=== PATIENT | male | born 1935 | race Caucasian/White ===

== ENCOUNTER 2017-03-06 10:54 | Inpatient (IN) ==
--- NOTE | 2017-03-06 11:28 | PROVIDER DOCUMENTATION ---
HPI-Neurological Disorder - General Chief Complaint: Stroke-Like Symptoms Stated Complaint: STROKE LIKE SX Time Seen by Provider: 03/06/17 11:13 Source: patient, family Unable to obtain history due to:: urgency Allergies/Adverse Reactions: Patient Allergies Allergy/AdvReac Type Severity Reaction Status Date / Time No Known Allergies Allergy Verified 10/27/16 08:34 Home Medications: Home Medication List Medication Instructions Recorded Confirmed Last Taken Type Allopurinol 100 mg PO DAILY 10/27/16 11/01/16 11/01/16 05:00 History Amlodipine Besylate/Benazepril 1 each PO DAILY 10/27/16 11/01/16 10/31/16 09:00 History [Amlodipine-Benazepril 10-40 mg] Clopidogrel Bisulfate [Plavix] 75 mg PO DAILY 10/27/16 11/01/16 10/25/16 09:00 History Famotidine 20 mg PO BID 10/27/16 11/01/16 10/31/16 21:00 History Fish Oil/Dha/Epa [Fish Oil 1,200 1 each PO DAILY 10/27/16 11/01/16 10/31/16 09: 00 History mg Fish Oil] Fluorometholone 0.1% Oph [Fml 0.1% 1 drop DAILY 10/27/16 11/01/16 10/31/16 21: 00 History Oph Suspension] Gluc/Abelardo-MSM#1/Vit C/[place]/Bor 1 each PO BID 10/27/16 11/01/16 10/31/16 21:00 History [Jbpjzhn-Hasdt-MEB Complex Cplt] Metoprolol Succinate [Toprol Xl] 200 mg PO DAILY 10/27/16 11/01/16 11/01/16 05: 00 History Multivit-Min/FA/Lycopen/Lutein 1 each PO DAILY 10/27/16 11/01/16 10/31/16 09:00 History [Centrum Silver Tablet] Pravastatin Sodium 40 mg PO DAILY 10/27/16 11/01/16 10/31/16 09:00 History Tamsulosin [Flomax] 0.4 mg PO DAILY 10/27/16 11/01/16 10/31/16 09:00 History Vit A/C/E AC/Znox/Cupric Oxide 1 each PO DAILY 10/27/16 11/01/16 10/31/16 09:00 History [Eye Vitamin-Minerals Tablet] Acetaminophen [Tylenol] 1,000 mg PO Q6H #0 tablet 11/04/16 Unknown Rx Celecoxib [Celebrex] 200 mg PO BID #0 capsule 11/04/16 Unknown Rx Docusate Sodium [Colace] 100 mg PO BID #0 capsule 11/04/16 Unknown Rx Magnesium Hydroxide [Milk of 30 ml PO Q6H PRN PRN #0 udc 11/04/16 Unknown Rx Magnesia] Oxycodone I.r. [Oxy Ir] 5 - 10 mg PO Q3H PRN PRN #60 11/04/16 Unknown Rx capsule Pregabalin [Lyrica] 75 mg PO BID #60 capsule 11/04/16 Unknown Rx Tramadol [Ultram] 100 mg PO Q6H #120 tablet 11/04/16 Unknown Rx - History of Present Illness-Neuro Nature of Presenting Problem: Presents with slurred speech. Son talked to him yest, was NL. No one talked to him again until today, when pt and son noticed his speech difficulty. He c/o pain to R knee, denies numbness or weakness. no fever, no headache Severity: reports: mild Onset/Duration: reports: unsure Timing: reports: still present Context: reports: other (see HPI) Character of Altered Mental Status: reports: other (speech slurred) Any recent trauma/injury?: reports: none Character of Deficits: reports: impaired speech New weakness or altered sensation location:: reports: none Cognitive Baseline: alert, oriented x3 Gait Baseline: walks without assistance Associated Symptoms: reports: slurred speech. denies: headache, chest pain, fever/chills, nausea, vomiting, vision changes Similar Symptoms Previously?: No Recently seen or treated by another doctor?: No Review of Systems - Adult - REVIEW OF SYSTEMS - ADULT Constitutional: reports: no symptoms reported Eyes: reports: no symptoms reported Ears, Nose, Mouth & Throat: reports: no symptoms reported Cardiovascular: reports: no symptoms reported Respiratory: reports: no symptoms reported Gastrointestinal: reports: no symptoms reported Genitourinary: reports: no symptoms reported Musculoskeletal: reports: see HPI Integumentary: reports: no symptoms reported Neurological: reports: see HPI Psychiatric: reports: no symptoms reported Endocrine: reports: no symptoms reported Hematologic/Lymphatic: reports: no symptoms reported Allergic/Immunologic: reports: no symptoms reported Past History - Adult - PAST MEDICAL HISTORY-ADULT Review of Records: reports: Medications Reviewed - SOCIAL HISTORY Smoking: denies Physical Exam- Neurological - Physical Exam-Neuro Initial Vital Signs Reviewed: Yes General Appearance: appears well, alert, no apparent distress Eye Exam: bilateral eye: normal inspection, PERRL, EOMI HENMT: normocephalic/atraumatic, moist mucous membranes, normal ENT inspection, pharynx normal Head Injury: no evidence of injury. negative: active bleeding Neck: full range of motion, supple, normal inspection, other (no carotid Bruit) Respiratory: lungs clear, normal breath sounds, no pleuratic chest pain, no respiratory distress, no accessory muscle use Cardiovascular: regular rate, rhythm, no edema, no gallop, no murmur Abdominal Exam: non tender, soft Extremity: normal range of motion, non-tender, normal inspection chemical maker Exam: normal hearing, PERRL, other (speech sl slurred. CN exam shows sl weakness of R CN VII, otherwise are intact) Motor/Sensory: no sensory deficit, other (sl RUE pronator drift, sl weakness on extension of R LE) Neurologic: other (see above) Integumentary: normal color, normal turgor, warm/dry, abrasion(s) Progress - PLAN OF CARE/RESULTS Progress/Plan/Lab Results: Vital Signs - 8 hr 03/06/17 11:03 Temperature 97.4 F L Pulse Rate 50 L Respiratory Rate 20 Blood Pressure 175/93 O2 Sat by Pulse Oximetry 100 Laboratory Results - last 24 hr 03/06/17 03/06/17 03/06/17 11:35 11:35 11:35 WBC 5.82 RBC 3.95 L Hgb 12.9 L Hct 38.1 L MCV 96.5 MCH 32.7 H MCHC 33.9 RDW Std Deviation 13.7 Plt Count 158 MPV 10.3 Immature Gran % (Auto) 0.0 Neut % (Auto) 61.4 Lymph % (Auto) 25.3 [place] % (Auto) 11.5 H Eos % (Auto) 1.5 Baso % (Auto) 0.3 Immature Gran # (Auto) 0.00 Neut # (Auto) 3.57 Lymph # (Auto) 1.47 [place] # (Auto) 0.67 H Eos # (Auto) 0.09 Baso # (Auto) 0.02 PT 10.7 INR 1.02 PTT (Actin FS) 25.3 Sodium 142 Potassium 4.2 Chloride 105 Carbon Dioxide 25 Anion Gap 12 BUN 16 Creatinine 1.0 Estimated GFR/1.73 m2 > 60 BUN/Creatinine Ratio 16 Glucose 110 H Calculated Osmolality 285 Calcium 8.9 Total Bilirubin 0.49 AST 18 ALT 12 Alkaline Phosphatase 72 Troponin T Total Protein 6.7 Albumin 4.2 Globulin 2.5 Albumin/Globulin Ratio 1.7 Urine Source Urine Color Urine Turbidity Urine pH Ur Specific [place] Urine Protein Ur Glucose (Stick) Ur Ketones (Stick) Urine Blood Urine Nitrite Urine Bilirubin Urobilinogen Dipstick Urine Leukocytes Urine WBC (Auto) Urine RBC (Auto) U Epithel Cells (Auto) Urine Bacteria (Auto) Urine Opiates Screen Ur Oxycodone Screen Ur Methadone, Qual Ur Barbiturates Screen Ur Phencyclidine Scrn Ur Amphetamines Screen U Benzodiazepines Scrn Urine Cocaine Screen U Cannabinoids Screen 03/06/17 03/06/17 03/06/17 11:35 11:40 11:40 WBC RBC Hgb Hct MCV MCH MCHC RDW Std Deviation Plt Count MPV Immature Gran % (Auto) Neut % (Auto) Lymph % (Auto) [place] % (Auto) Eos % (Auto) Baso % (Auto) Immature Gran # (Auto) Neut # (Auto) Lymph # (Auto) [place] # (Auto) Eos # (Auto) Baso # (Auto) PT INR PTT (Actin FS) Sodium Potassium Chloride Carbon Dioxide Anion Gap BUN Creatinine Estimated GFR/1.73 m2 BUN/Creatinine Ratio Glucose Calculated Osmolality Calcium Total Bilirubin AST ALT Alkaline Phosphatase Troponin T < 0.010 Total Protein Albumin Globulin Albumin/Globulin Ratio Urine Source CLEAN CATCH Urine Color YELLOW Urine Turbidity CLEAR Urine pH 6.0 Ur Specific [place] 1.015 Urine Protein NEGATIVE Ur Glucose (Stick) NEGATIVE Ur Ketones (Stick) NEGATIVE Urine Blood NEGATIVE Urine Nitrite NEGATIVE Urine Bilirubin NEGATIVE Urobilinogen Dipstick NORMAL Urine Leukocytes NEGATIVE Urine WBC (Auto) <10 Urine RBC (Auto) <10 U Epithel Cells (Auto) <10 Urine Bacteria (Auto) NEGATIVE Urine Opiates Screen NONE DETECTED Ur Oxycodone Screen NONE DETECTED Ur Methadone, Qual NONE DETECTED Ur Barbiturates Screen NONE DETECTED Ur Phencyclidine Scrn NONE DETECTED Ur Amphetamines Screen NONE DETECTED U Benzodiazepines Scrn NONE DETECTED Urine Cocaine Screen NONE DETECTED U Cannabinoids Screen NONE DETECTED Orders Category Date Time Status Cardiac Monitoring DIRECTED Care 03/06/17 11:22 Active Finger Stick Blood Sugar (ED) DIRECTED Care 03/06/17 11:22 Active Misc. NRSG Communication Order DIRECTED Care 03/06/17 11:22 Active Saline Loc NOW Care 03/06/17 11:22 Active CHEST-PORTABLE [RAD] Stat Exams 03/06/17 11:22 Completed HEAD W/O CONTRAST [CT] Stat Exams 03/06/17 11:22 Completed CBC WITH ELECTRONIC DIFF [HEME] Stat Lab 03/06/17 11:35 Completed COMPREHENSIVE METABOLIC PANEL [CHEM] Stat Lab 03/06/17 11:35 Completed PROTIME WITH INR [COAG] Stat Lab 03/06/17 11:35 Completed PTT [COAG] Stat Lab 03/06/17 11:35 Completed TROPONIN T Stat Lab 03/06/17 11:35 Completed URINALYSIS W/POSS RFLX CULT-1 [URINALYSIS] Stat Lab 03/06/17 11:40 Completed URINE DRUG SCREEN Stat Lab 03/06/17 11:40 Completed EKG [EKG] Stat Ther 03/06/17 11:07 Ordered EKG [EKG] Stat Ther 03/06/17 11:22 Ordered Result Diagrams: 03/06/17 11:35 03/06/17 11:35 - XRAY 1 XRAY Study: Chest Impression: Normal - CT/MRI 1 CT Study: Head Impression: Normal CT Results: Chronic changes, nothing acute - CONSULTS/PCP/HOSPITALIST Notification #1 *Consult/PCP/Hospitalist*: [place] Time Discussed: 12:29 Consult Disposition: Will see in ED, Admit Departure - Departure Time of Disposition Decision: 12:14 DIAGNOSIS: CVA (cerebral vascular accident) Qualifiers: CVA mechanism: unspecified Qualified Code(s): I63.9 - Cerebral infarction, unspecified Disposition: ADMITTED INPATIENT 09 Certified Medical Emergency: Emergent Condition: Good Referrals and Follow-Ups: Capo Moreland [Primary Care Provider] - - Critical Care Note This patient required my direct & personal management of CC.: No
[2017-03-06 11:38] LABS: MANUAL DIFF NEEDED? NO
[2017-03-06 11:42] LABS: BASO% 0.3 % (0.0-0.8); EOS# 0.09 X1000 (0.0-0.7); EOS% 1.5 % (0.0-10.0); HEMATOCRIT 38.1 % (42.0-52.0); HEMOGLOBIN 12.9 g/dL (14.0-18.0); LYMPH# 1.47 X1000 (1.2-3.4); LYMPH% 25.3 % (20.5-51.1); MCH 32.7 PG (27-31); MCHC 33.9 g/dL (33-37); MCV 96.5 FL (81-99); MONO# 0.67 X1000 (0.11-0.59); MONO% 11.5 % (1.7-9.3); MPV 10.3 FL (7.4-10.4); NEUT% 61.4 % (42.2-75.2); PLT 158 X1000 (130-400); RBC 3.95 XMIL (4.7-6.1)
[2017-03-06 11:47] LABS: URINE CULTURE NEEDED? NO; URINE MICRO REVIEW NEEDED? NO; URINE SOURCE CLEAN CATCH
[2017-03-06 11:50] LABS: INR 1.02; PROTIME 10.7 Seconds (9.2-11.7); PTT 25.3 Seconds (22.0-36.0)
[2017-03-06 11:54] LABS: BILIRUBIN URINE NEGATIVE (NEGATIVE); BLOOD URINE NEGATIVE (NEGATIVE); COLOR YELLOW; GLUCOSE URINE NEGATIVE (NEGATIVE); LEUKOCYTES URINE NEGATIVE (NEGATIVE); NITRITE URINE NEGATIVE (NEGATIVE); PROTEIN URINE NEGATIVE (NEGATIVE); SP GRAVITY URINE 1.015; TURBIDITY URINE CLEAR (CLEAR); UR EPITHELIAL CELLS <10 /HPF (<10); URINE BACTERIA NEGATIVE /HPF; URINE RBC <10 /HPF (<10); URINE WBC <10 /HPF (<10); UROBILINOGEN URINE NORMAL (NORMAL)
--- NOTE | 2017-03-06 11:58 | Diag Imaging Result Doc PS360 ---
EXAM: CHEST-PORTABLE HISTORY: stroke like symptoms TECHNIQUE: AP upright at 1147 COMMENT: the appearance of the chest has not changed significantly since 11/04/2016. IMPRESSION: Stable chest. Electronically signed by Kendall Andrade 03/06/2017 11:56 AM
[2017-03-06 12:05] LABS: AGAP 12; ALBUMIN 4.2 g/dL (3.5-5.0); ALKALINE PHOSPHATASE 72 U/L (32-122); BUN 16 mg/dL (8-22); CALCIUM 8.9 mg/dL (8.8-10.2); CHLORIDE 105 mmol/L (98-107); COSMO 285; GOT 18 U/L (10-34); GPT 12 U/L (10-44); POTASSIUM 4.2 mmol/L (3.5-5.1); SODIUM 142 mmol/L (136-145); TCO2 25 mmol/L (25-35); TOTAL BILIRUBIN 0.49 mg/dL (0.20-1.00); TOTAL PROTEIN 6.7 g/dL (6.3-8.3)
[2017-03-06 12:07] LABS: UR AMPHETAMINES QUAL NONE DETECTED (NONE DETECT); UR BARBITUATES QUAL NONE DETECTED (NONE DETECT); UR BENZODIAZEPIN QUAL NONE DETECTED (NONE DETECT); UR CANNABINOIDS QUAL NONE DETECTED (NONE DETECT); UR COCAINE QUAL NONE DETECTED (NONE DETECT); UR METHADONE QUAL NONE DETECTED (NONE DETECT); UR OPIATES QUAL NONE DETECTED (NONE DETECT); UR OXYCODONE QUAL NONE DETECTED (NONE DETECT); UR PCP QUAL NONE DETECTED (NONE DETECT)
--- NOTE | 2017-03-06 12:11 | Diag Imaging Result Doc PS360 ---
EXAM: HEAD W/O CONTRAST HISTORY: stroke like symptoms TECHNIQUE: CT of the head without contrast with decreased dose (clarity.) COMMENT: There is extensive calcification in the left vertebral artery and both internal carotid arteries. There is a moderate patchy white matter lucency throughout both hemispheres particularly in the frontal region on the right. No evidence of bleed mass effect or abnormal extra-axial fluid collection is present. There are no previous studies. The visualized paranasal sinuses are clear. No acute bony abnormalities are present. IMPRESSION: Chronic ischemic microvascular white matter disease. No evidence of acute disease. Electronically signed by Kendall Andrade 03/06/2017 12:09 PM
[2017-03-06] MEDS: ASPIRIN PO SCH (13:45)
[2017-03-06] MEDS ORDERED: NS 1,000 ML IV SCH (14:16)
--- NOTE | 2017-03-06 16:22 | ECHO REPORT ---
ORDER DATE: 03/06/2017 INDICATION: Stroke. FINDINGS: 1. Right atrium is mildly enlarged. There is evidence for Chiari network present in the right atrium. This is a normal finding. 2. Mild tricuspid regurgitation. RV systolic pressure of 50. 3. Normal RV size and systolic function. 4. Moderate pulmonic insufficiency. 5. Mild left atrial enlargement at 4.8 cm. 6. No mitral valve prolapse. There is mild mitral regurgitation. 7. Upper limits of normal LV size with an end-diastolic dimension of 5.7. Normal wall thicknesses with a posterior and interventricular septal wall thickness 1.0 and 1.1 cm respectively. Normal LV systolic function. Calculated EF of 58% with normal wall motion. 8. Aortic valve appears sclerotic but opens well. There is no evidence of stenosis. Trace insufficiency. 9. Aorta appears normal in visualized segments. 10. No pericardial effusion seen. cc: MD Rei Roa CRNP
--- NOTE | 2017-03-06 20:27 | HISTORY AND PHYSICAL ---
CHIEF COMPLAINT: Slurred speech. HISTORY OF PRESENT ILLNESS: Mr. Leo is a very pleasant 81-year-old male with a history of hypertension, coronary disease, hyperlipidemia and arthritis who presents with expressive aphasia that began some time yesterday. Patient is unsure exactly what time everything started as he was alone most of the day yesterday and was not talking to anybody. However this morning family came and checked on him and they noticed that he was having quite a bit of slurred speech and expressive aphasia. They brought him to the ER for evaluation. The patient himself is currently having clear expressive aphasia having difficulty finding words at times. Other times the speech is slurred. He also reports that he has some right leg weakness which he attributed to his chronic right knee pain but when asked about his upper extremities he also stated that he thought perhaps his right upper extremity was weak. He denies any chest pain or shortness of breath. No belly pain, nauseam, vomiting or diarrhea. No dysuria and no fever, chills cough or congestion. When he got to the ER he had a head CT done which showed a chronic ischemic microvascular white matter disease nothing acute. His laboratory data was also unremarkable. We are going to admit him for acute stroke and continue with treatment and evaluation. PAST MEDICAL HISTORY: 1. Hypertension. 2. CAD status post stenting. 3. GERD. 4. Hyperlipidemia. 5. Osteoarthritis. SURGICAL HISTORY: He has had left knee replacement, coronary stenting, bilateral cornea transplants. SOCIAL HISTORY: Is but lives with his son. He has a remote history of tobacco abuse and currently drinks 3 drinks every Tuesday. He denies drug use. FAMILY HISTORY: Father at 45 years old from apparent rheumatic heart disease. Mother from Alzheimer dementia but also with a history of CVA. REVIEW OF SYSTEMS: Ten point review of systems obtained found to be negative with the exception of the HPI. HOME MEDICATIONS: Tylenol 1000 mg every 6 hours as needed, allopurinol 100 mg daily, amlodipine/benazepril 1 daily, Celebrex 200 mg t.i.d., Plavix 75 mg daily, famotidine 20 mg b.i.d., fish oil 1200 mg daily, multivitamin 1 daily, Mobic 7.5 mg daily, Toprol-XL 200 mg daily, pravastatin 40 mg daily, Flomax 0.4 mg daily. ALLERGIES: No known drug allergies. PHYSICAL EXAMINATION: VITAL SIGNS: Blood pressure is 176/83, heart rate 46, respiratory rate 13, O2 saturation 98% on room air, temperature 97.4 degrees. GENERAL: This is a frail elderly 81-year-old male lying in hospital bed. No acute distress. NEUROLOGIC: The patient has expressive aphasia. He follows commands with right upper and lower extremity weakness which is only very mild, no other deficits are noted. He is slightly disoriented as well. HEENT: Head is atraumatic and normocephalic. His pupils are equal, round, reactive to light. Oral mucosa is moist. Trachea is midline. NECK: Is supple. There is no JVD or carotid bruits. CHEST: Clear to auscultation bilaterally. CV: Regular but bradycardic, S1-S2 is noted with 2/6 murmur is also noted. GI: Soft, nondistended, nontender. Bowel sounds are positive. EXTREMITIES: With 1+ edema bilaterally and diminished pulses. DIAGNOSTIC DATA: Head CT shows chronic changes. Chest x-ray does not show anything acute. EKG is pending. WBC 5.82, hemoglobin 12.9, hematocrit 38.1, platelet count 158,000, INR 1.02. Sodium 142, potassium 4.2, chloride 105, CO2 25, anion gap 12, BUN 16, creatinine 1, glucose 110, calcium 8.9, bilirubin 0.49. Liver function tests and cardiac enzymes negative. UA does not show any acute process. Toxicology is negative. ASSESSMENT/PLAN: 1. Acute cerebrovascular accident: Patient's symptoms most consistent with stroke. Will admit him for stroke workup including MRI and MRA of the head. Will check carotids and echocardiogram. Will make sure the patient is on aspirin as will only seem he is on Plavix. Will stop his pravastatin and add high intensity statin. Continue neuro checks. Will also consult speech therapy as he does have expressive aphasia and will need an adequate swallow evaluation. Will also allow for permissive hypertension the first 24 hours and monitor neuro status and telemetry closely. 2. Coronary artery disease: This appears to be stable. Will continue aspirin, Plavix, high intensity statin, trend his enzymes and check an echocardiogram. 3. Hypertension: Allow for permissive hypertension the first 24 hours. Will resume his oral antihypertensives after that. 4. Hyperlipidemia. Will stop his pravastatin, Lipitor. 5. Deep vein thrombosis prophylaxis with Lovenox. Further recommendations to follow. Dictated by DINESH Agarwal for Loyda Tian MD cc: MD Loyda Gibson MD
[2017-03-06] MEDS ORDERED: PEPCID PO SCH (21:00)
[2017-03-07 05:47] LABS: HEMATOCRIT 36.9 % (42.0-52.0); HEMOGLOBIN 12.1 g/dL (14.0-18.0); MCH 32.1 PG (27-31); MCHC 32.8 g/dL (33-37); MCV 97.9 FL (81-99); MPV 10.4 FL (7.4-10.4); RBC 3.77 XMIL (4.7-6.1)
--- NOTE | 2017-03-07 05:51 | EKG Report ---
Test Performed on : 03/06/2017 5:40:30 PM Test Reason : bradycardia Blood Pressure : / mmHG Vent. Rate : 052 BPM Atrial Rate : 052 BPM P-R Int : 264 ms QRS Dur : 162 ms QT Int : 518 ms P-R-T Axes : 062 025 013 degrees QTc Int : 481 ms Sinus bradycardia. with 1st degree AV block. with occasional premature ventricular complexes. Right bundle branch block Abnormal ECG When compared with ECG of 06-MAR-2017 11:12, premature ventricular complexes. are now present Confirmed by Singh TRIPATHI, Adrian Amaya ([id number]) on 03/07/2017 10:56:30 AM
--- NOTE | 2017-03-07 06:01 | EKG Report ---
Test Performed on : 03/06/2017 11:12:34 AM Test Reason : stroke like sx Blood Pressure : / mmHG Vent. Rate : 051 BPM Atrial Rate : 051 BPM P-R Int : 256 ms QRS Dur : 158 ms QT Int : 506 ms P-R-T Axes : 073 -02 -09 degrees QTc Int : 466 ms Sinus bradycardia. with 1st degree AV block. Right bundle branch block Abnormal ECG When compared with ECG of 27-OCT-2016 09:06, premature ventricular complexes. are no longer present Questionable change in QRS axis Unconfirmed Result
[2017-03-07 06:03] LABS: HEMOGLOBIN A1C 5.5 % (4.8-6.0)
[2017-03-07 06:05] LABS: AGAP 11; BUN 15 mg/dL (8-22); CALCIUM 8.8 mg/dL (8.8-10.2); CHLORIDE 107 mmol/L (98-107); COSMO 287; POTASSIUM 3.9 mmol/L (3.5-5.1); SODIUM 144 mmol/L (136-145); TCO2 26 mmol/L (25-35)
[2017-03-07] MEDS: SODIUM CHLORIDE 0.9% INJ SCH (06:37)
[2017-03-07] MEDS: PROTONIX IV SCH (06:37)
[2017-03-07] MEDS ORDERED: TOPROL XL PO SCH (09:00)
--- NOTE | 2017-03-07 09:43 | PROGRESS NOTE ---
DATE: 03/07/2017 SUBJECTIVE: This is an 81-year-old with a history of hypertension, coronary artery disease, hyperlipidemia, and arthritis, who presented with expressive aphasia that began sometime on 03/06/2017, yesterday; unsure exactly what time everything started as he was alone most of the day and was not talking to anybody. Family came and checked on him and noticed that he was having slurred speech and expressive aphasia. He thinks his right leg may be a little bit weaker subjectively. He is able to walk around. Currently having expressive aphasia when he came to the emergency room. This has improved. Family notes that it has improved. He has gotten up and already made his bed, and he is not having any headache or any palpitations or chest pain. PAST MEDICAL HISTORY: 1. Hypertension. 2. Coronary artery disease, status post stenting. 3. Gastroesophageal reflux disease. 4. Hyperlipidemia. 5. Osteoarthritis. ASSESSMENT AND PLAN: 1. Cerebrovascular accident. Symptoms consistent with stroke. Admitted for workup including MRI and MRA of the head and, also, look at an echocardiogram. He is on a monitor. He stays in sinus rhythm. He was on Plavix when he came in, and he is on aspirin 81 mg a day. 2. Blood pressures look good. I would leave those alone. CURRENT MEDICATIONS: 1. Amlodipine. 2. I think he got a benzodiazepine combination and that is 5-20. He is on that once a day. 3. He is not on any blood pressure medicine. 4. Also, he is on allopurinol. I presume this is for history of gout in the past. PLAN: Will try physical therapy. He is going to get an echocardiogram, and we are going to make sure noninvasive carotid studies are okay. If he does okay, he may get to go home tomorrow. cc: Asael Adam MD
[2017-03-07] MEDS: PLAVIX PO SCH (10:02)
[2017-03-07] MEDS: FLOMAX PO SCH (10:02)
[2017-03-07] MEDS: ZYLOPRIM PO SCH (10:02)
[2017-03-07] MEDS: PRAVACHOL PO SCH (10:02)
[2017-03-07] MEDS: LOVENOX SUBQ SCH (10:02)
[2017-03-07] MEDS: ASPIRIN PO SCH (10:02)
[2017-03-07] MEDS: LOTREL 5/20 MG PO SCH (12:37)
--- NOTE | 2017-03-07 13:44 | Diag Imaging Result Doc PS360 ---
MRI BRAIN W W/O CONTRAST - 03/07/2017 INDICATION: CVA, Expressive Aphasia, Right weakness TECHNIQUE: COMPARISON: Head CT 03/06/2017 FINDINGS: There is restricted diffusion in the left paramedian court compatible with an acute infarction. There is extensive chronic microvascular disease. No intracranial mass or hemorrhage. No abnormal contrast enhancement. IMPRESSION: Acute left paramedian pontine infarction. Electronically signed by Freddie Alvarez 03/07/2017 1:42 PM
--- NOTE | 2017-03-07 13:46 | Diag Imaging Result Doc PS360 ---
MRA BRAIN W/O CONTRAST - 03/07/2017 INDICATION: CVA TECHNIQUE: Noncontrast [id number] angiography was performed of the head. COMPARISON: None FINDINGS: The intracranial cranial arteries are all normal in size and contour. No aneurysm or significant stenosis. Anatomy is conventional. IMPRESSION: Negative exam. Electronically signed by Freddie Alvarez 03/07/2017 1:44 PM
--- NOTE | 2017-03-07 22:22 | CONSULTATION ---
DATE OF CONSULTATION: 03/07/2017 REFERRING PHYSICIAN: The patient is seen in consultation at the request of Loyda Tian MD. REASON FOR CONSULTATION: For evaluation of stroke. HISTORY OF PRESENT ILLNESS: The patient is an 81-year-old, right-handed male, who presents with slurred speech and two falls and was found to have an acute ischemic left paramedian pontine infarct. He reports that this occurred on Tuesday. He had a fall. He was not exactly sure why, just lost his balance, and then again this happened on Tuesday. On Tuesday, he noticed that he had slurred speech and says that perhaps it was ongoing, but he had not really been speaking until then. He has not had any other symptoms, except he thinks maybe his right side or right knee is weak. No chest pain or shortness of breath. No nausea or dizziness. No headache. PAST MEDICAL HISTORY: Hypertension, coronary artery disease, status post PCI, GERD, hyperlipidemia, osteoarthritis. SURGICAL HISTORY: Left knee replacement in October. Plan for the right knee in the future. Coronary artery stents. Bilateral corneal transplants. SOCIAL HISTORY: He is and lives with his son. He used to smoke tobacco 20 years ago. He has 3 ounces of rum one day a week. No drug use. FAMILY HISTORY: Mother with Alzheimer's dementia and stroke. Father with reported rheumatic heart disease. Both are . REVIEW OF SYSTEMS: Balance of 10 is conducted and is otherwise negative except that which is mentioned in the HPI. ALLERGIES: No known drug allergies. MEDICATIONS AT HOME: Plavix. Pravastatin 40 mg daily. Fish oil which he says he is now taking every other day. INPATIENT MEDICATIONS: Lotrel 03/05, 2 p.o. daily. Aspirin 81 mg has been started. Plavix. Pravastatin 40 mg daily. Otherwise noted in the chart. PHYSICAL EXAMINATION: Vital Signs: Reviewed. Blood pressure 142/78 currently , pulse 49. General: This patient is lying in bed. He is awake and alert. He is in no acute distress. Neck: Supple. No carotid bruits appreciated. Cardiovascular: Regular rate and rhythm. No murmurs appreciated. Lungs: Clear to auscultation anteriorly. Abdomen: Soft , nontender, nondistended. Extremities: No cyanosis or edema. Skin: No rash or lesions. Neurological: Mental status: He is awake and he is alert. He is oriented. His attention and concentration are within normal limits. His language is intact. He has some mild dysarthria. Naming and repetition are intact. Cranial nerves: His pupils are equal, round, reactive to light. His ocular movements are intact. No nystagmus. Visual raines are full to direct confrontational testing. Facial sensation is intact. There is asymmetry to the lower face with a subtle right- sided droop. Hearing is reduced. Palate elevates symmetrically. The tongue protrudes midline. Full shoulder shrug bilaterally. Motor exam, normal bulk and tone. No abnormal movements. No pronator drift. He is 5/5 in all extremities with the exception of the right arm extension which is slightly weak compared to the left. His reflexes are symmetric. Sensation is intact to light touch and temperature. [id number] is intact. His rapid alternating movements are slowed. He has perseveration noted. Gait was untested. PERTINENT DIAGNOSTICS: MRI of the brain was personally reviewed and agree with Radiology interpretation, he has acute left paramedian pontine infarct. He also has some extensive chronic microvascular disease. His MRA of the head was unremarkable. An EKG with sinus bradycardia, first-degree AV block, occasional PVCs and right bundle branch block. Echocardiogram does not show any thrombus. Head CT did not show any acute findings. PT 10.7, INR 1. Platelets 143,000. Glucose 89. A1c 5.5. Triglycerides 133, LDL 63. HDL 38. Urinalysis was negative. Toxicology negative. ASSESSMENT AND PLAN: An 81-year-old, right-handed male, admitted with acute left paramedian pontine ischemic stroke. I would continue the patient's Plavix and I think it is okay that he has been given the addition of a low-dose aspirin. I agree with cardiac monitoring to evaluate for atrial fibrillation. As this is a posterior circulation stroke, would consider MRA of the neck. Would allow for permissive hypertension during this acute time. His blood pressures have been okay while he has been here. I agree with continuing his Pravachol. PT, OT and ST evaluation. He reports he has been eating in the hospital and without difficulty; would be sure to have him formally evaluated to make sure that his swallowing is adequate if this has not already been done. Thank you for this consultation. cc: Mary Jane Nava MD [facility]ALS[facility]ulo
[2017-03-08] MEDS: SODIUM CHLORIDE 0.9% INJ SCH (06:25)
[2017-03-08] MEDS: PROTONIX IV SCH (06:25)
[2017-03-08 06:56] LABS: HEMATOCRIT 37.7 % (42.0-52.0); HEMOGLOBIN 12.6 g/dL (14.0-18.0); MCH 32.4 PG (27-31); MCHC 33.4 g/dL (33-37); MCV 96.9 FL (81-99); MPV 10.2 FL (7.4-10.4); RBC 3.89 XMIL (4.7-6.1)
[2017-03-08 07:09] LABS: AGAP 10; BUN 19 mg/dL (8-22); CALCIUM 8.7 mg/dL (8.8-10.2); CHLORIDE 105 mmol/L (98-107); COSMO 285; POTASSIUM 4.2 mmol/L (3.5-5.1); SODIUM 142 mmol/L (136-145); TCO2 27 mmol/L (25-35)
[2017-03-08] MEDS: PLAVIX PO SCH (10:07)
[2017-03-08] MEDS: ZYLOPRIM PO SCH (10:07)
[2017-03-08] MEDS: FLOMAX PO SCH (10:07)
[2017-03-08] MEDS: LOVENOX SUBQ SCH (10:07)
[2017-03-08] MEDS: LOTREL 5/20 MG PO SCH (10:07)
[2017-03-08] MEDS: PRAVACHOL PO SCH (10:07)
[2017-03-08] MEDS: ASPIRIN PO SCH (10:07)
--- NOTE | 2017-03-08 11:27 | Carotid Study ---
DATE: 03/06/2017 PROCEDURE: Bilateral duplex and color flow imaging of the carotid arteries performed using the ImmuVen Vivid E9 ultrasound system with a 9L-D transducer. REFERRING PHYSICIAN: Loyda Tian MD. INTERPRETING PHYSICIAN: Maria Isabel More MD. TECH: Rhonda Soriano Monique. INDICATIONS: CVA--stroke, ICD-10 163.50. OBSERVED DATA RIGHT LEFT Brachial Blood Pressure Carotid Pulse Bruits: Carotid/Sub DIAGRAM OF ULTRASOUND IMAGING R L RIGHT INT EXT INT EXT LEFT Brett (cm/s) Brett (cm/s) Subclavian 66/0 Subclavian 59/0 CCA Proximal 106/17 CCA Proximal 89/12 CCA Distal 92/17 CCA Distal 89/14 Bulb 85/16 Bulb 63/12 ICA Proximal 59/13 ICA Proximal 76/15 ICA Mid 72/17 ICA Mid 55/18 ICA Distal 48/15 ICA Distal 55/18 ECA 58/7 ECA 54/9 Vertebral 26/9 Vertebral 37/12 ICA/CCA Ratio 0.68 ICA/CCA Ratio 0.86 % Stenosis 0-39 % Stenosis 0-39 PHYSICIAN INTERPRETATION: Mild atherosclerotic disease of the distal common and internal carotid arteries bilaterally without evidence of a hemodynamically significant lesion in either carotid system. cc: MD Rei Sandoval CRNP
--- NOTE | 2017-03-08 13:54 | PROGRESS NOTE ---
DATE: 03/08/2017 Mr. Leo is awake, alert, attentive, cheerful, appropriate. Speech is a little bit dysarthric but easily understood. I do not see any other language deficit on gross bedside testing. Facial asymmetry persists but may be improved. He has a right deltoid weakness grading 4/5. Tone is increased in the right arm. There is no new neurologic deficit. Workup includes carotid ultrasound showing some mild disease but no hemodynamically significant stenosis bilaterally. Brain MRA was unremarkable. Brain MRI showed acute left pontine infarction to explain his clinical deficit. I reviewed his risk factors with him. I encouraged him to be aggressive with management of that. I do not have any new suggestion today from a neurologic standpoint. cc: Buffy Madsen III, MD MTDD
--- NOTE | 2017-03-08 14:03 | PROGRESS NOTE ---
DATE: 03/08/2017 SUBJECTIVE: Mr. Leo's speech is better, still feels that there is some mild subjective weakness in both of his right side arm and leg. OBJECTIVE: Vital signs: Temperature 98.3 degrees, pulse 58, respirations 20, blood pressure 174/98. HEENT: Pupils are equal, round. Lungs: Are clear in all lung raines. Cardiovascular: Regular rhythm and rate without murmur or S3. Abdomen: Soft. Skin: Is warm and dry. Neuro: Dr. Mary Jane Nava was consulted and motor exam was normal bulk and tone. No abnormal movements or pronator drift. Had 5/5 in all extremities except in the right arm extension which is slightly weak compared to left. Reflexes were symmetrical, sensation intact to light touch and temperature so patient appears to have left-sided paramedian pontine ischemic stroke. Patient is on Plavix and given a small dose aspirin. Evaluating for possible atrial fibrillation. Continue physical and occupational therapy and continue his Pravachol. Blood pressures look good. Review of all his lab unremarkable. Orders reviewed as well. I should also mention he has benign prostatic hypertrophy. He is on Flomax. Will see about of potential discharge. Echocardiogram done on 03/06 with Doppler and it was no sign of mural thrombus. End-diastolic dimension of left ventricle was 5.7, normal wall thickness, posterior intraventricular septal wall thickness 10, normal left ventricular systolic function with ejection fraction 58%. His carotid Doppler were mild atherosclerotic disease in the distal common and internal carotid arteries bilateral without evidence of hemodynamically significant disease. cc: Asael Adma MD
[2017-03-09] MEDS: SODIUM CHLORIDE 0.9% INJ SCH (06:38)
[2017-03-09] MEDS: PROTONIX IV SCH (06:38)
[2017-03-09 06:44] LABS: HEMATOCRIT 38.9 % (42.0-52.0); HEMOGLOBIN 12.8 g/dL (14.0-18.0); MCH 32.9 PG (27-31); MCHC 32.9 g/dL (33-37); MPV 10.5 FL (7.4-10.4); RBC 3.89 XMIL (4.7-6.1)
[2017-03-09 07:10] LABS: AGAP 9; BUN 19 mg/dL (8-22); CALCIUM 8.9 mg/dL (8.8-10.2); CHLORIDE 107 mmol/L (98-107); COSMO 289; POTASSIUM 4.4 mmol/L (3.5-5.1); SODIUM 144 mmol/L (136-145); TCO2 28 mmol/L (25-35)
[2017-03-09 07:23] VITALS: BP 147/96
[2017-03-09] MEDS: PRAVACHOL PO SCH (09:05)
[2017-03-09] MEDS: LOTREL 5/20 MG PO SCH (09:05)
[2017-03-09] MEDS: FLOMAX PO SCH (09:05)
[2017-03-09] MEDS: PLAVIX PO SCH (09:06)
[2017-03-09] MEDS: LOVENOX SUBQ SCH (09:06)
[2017-03-09] MEDS: ASPIRIN PO SCH (09:06)
[2017-03-09] MEDS: ZYLOPRIM PO SCH (09:06)
--- NOTE | 2017-03-09 12:15 | PROGRESS NOTE ---
DATE: 03/09/2017 The patient is doing better. Just had therapy. His symptoms are much improved from when the onset occurred. He continues to have some mild dysarthria and mild weakness on the right side. Otherwise he feels well and is ready to go home. Vital signs are reviewed. His blood pressures have been in the 140s over 80s to 90s. Pulse is 56. EXAM: He is sitting up in a chair today. Looks well. Feels good he says. Neurologic Exam: He is awake and alert. He is attentive and appropriate. He is oriented. Able to name and repeat. Not aphasic (only dysarthric). Cranial nerves: Pupils equal, round, reactive to light. His ocular movements are full. He continues to have a subtle right lower facial droop noted most prominently when he smiles. Mild dysarthria. He has a very mild right hemiparesis. His [id number] testing is accurate. DIAGNOSTICS: Just reviewing his stroke labs here his triglycerides are 133, LDL is 63, HDL 38. His A1c is 5.5. The brain MRI showed an acute left paramedian pontine infarct. The brain MRA did not show any stenosis. Echocardiogram did not show any thrombus. He has not had any atrial fibrillation that has been documented during his stay thus far. ASSESSMENT AND PLAN: 81-year-old male with a left pontine infarct. He has remaining symptoms of mild dysarthria, subtle right facial droop and subtle right hemiparesis. Most importantly for secondary stroke prevention would be adequate blood pressure management, anti- platelet therapy and cholesterol management. Agree with continuing the Pravachol. Agree with the Plavix and low-dose aspirin. I agree with the blood pressure management per his primary physician. He exercises regularly and will be watching his diet. He does not smoke. Would continued PT and OT and speech therapy. Signs of stroke, including those involving the posterior circulation, were discussed with the patient. Thank you for this consultation. I will be available as needed. cc: Mary Jane Nava MD [facility]
--- NOTE | 2017-03-09 12:41 | DISCHARGE SUMMARY ---
ADMISSION DATE: 03/06/2017 DISCHARGE DATE: 03/09/2017 HISTORY AND HOSPITAL COURSE: This is an 81-year-old male with a history of hypertension, coronary artery disease, hyperlipidemia, osteoarthritis, who presents with expressive aphasia that began sometime yesterday. Patient is unsure exactly what time everything started as he was alone for most of the day and was not talking to anybody. However, in the morning they came and checked in and noticed that he was having quite a bit of slurred speech and expressive aphasia. Brought him to the emergency room for evaluation. The patient is currently having clear expressive aphasia and difficulty finding words at times. Other times speech is slurred. Also reports he has had some right leg weakness which he attributed to chronic knee pain. When asked about his upper extremities, also state he thought perhaps right upper extremity was weak. It turned out his right side was just a little bit weak. Expressive aphasia improved. CT scan was negative. MRI showed mid pontine lesion consistent with mid pontine CVA. PAST MEDICAL HISTORY: 1. Hypertension. 2. Coronary artery disease status post stenting. 3. Gastroesophageal reflux disease. 4. Hyperlipidemia. 5. Osteoarthritis. ASSESSMENT AND PLAN: Discharge on 03/09/2017. He showed pretty impressive improvement. His speech was back to normal. Dysarthric a little bit on the right side. We are going to keep him on aspirin and Plavix. Follow up with his primary care. DISCHARGE MEDICATIONS: Allopurinol 100 mg daily, amlodipine 5/20 two daily, aspirin 81 mg a day, Plavix 75 mg a day, Protonix 40 mg he was getting IV and will stop that, Pravachol 40 mg daily, Flomax 0.4 mg daily. cc: Aseal Adam MD
== END 2017-03-09 14:39 | disposition left against medical advice (07) ==
LOC: ED 10:54 → 3N 14:02 → SUATTDRO 14:02 → 3N 14:12 → 3S 18:14 → 3N 03-07 13:30
PROVIDERS: ATTEND Emergency Medicine